=== PATIENT | female | born 1960 | race Caucasian/White ===

== ENCOUNTER → 2017-08-04 | Day surgery (SDC) | payer BC ==
[~2017-08-04] MED LIST: Acetaminophen/HYDROcodone 325-5 MG Tab PO PRN; Bupivacaine 0.5% 30 ML SDV ONE; Diphtheria,Pertussis(Acell),Tetanus Vaccine 0.5 ML SDV IM ONE; Doxycycline 100 MG Cap PO ONE; Iodine/Sodium Iodide 2% Tincture 30 ML Bottle ONE; Ketorolac 15 MG/ML SDV IVPUSH PRN; Lactated Ringers 1,000 ML IV SCH; Lidocaine 0.5% 50 ML SDV ONE; Lidocaine 1% 10 ML MDV INJECT ONE; Lidocaine 1% 20 ML MDV INJECT ONE; Lidocaine 1% 50 ML MDV ONE; Midazolam 1 MG/ML 2 ML SDV ONE; Ondansetron 4 MG/2 ML SDV IVPUSH PRN; Sodium Bicarbonate 8.4% 50 MEQ/50 ML SDV ONE; Sodium Chloride 0.9% 1,000 ML IV SCH; ceFAZolin 1 GM Vial ONE; ceFAZolin 2 GM in Premix Bag 1 BAG IV ONE; cefTRIAXone 1 GM in Sodium Chloride 0.9% 100 ML IV ONE; fentaNYL 250 MCG/5 ML SDV IVPUSH PRN
--- NOTE | 2017-08-04 13:06 | EDM.PDOC ---
ED HPI GENERAL MEDICAL PROBLEM - General Chief Complaint: Laceration Stated Complaint: LEFT RING FINGER LAC Time Seen by Provider: 08/04/17 13:01 Source of Information: Reports: Patient History Limitations: Reports: No Limitations - History of Present Illness INITIAL COMMENTS - FREE TEXT/NARRATIVE: Patient reports that she was sharpening a knife and she slipped when it came out of the shop in her. This resulted in a laceration across the distal dorsal phalanx of her left fourth finger. She recognizes that she's not able to fully extend the fingertip since time of injury. She has no recollection of when her last tetanus toxoid was updated. She denies any other injuries. Onset: Today Onset Date: 08/04/17 Onset Time: 12:40 Duration: Minutes: Location: Reports: Upper Extremity, Left (Left dorsal fourth finger) Quality: Reports: Other (No pain) Severity: Mild Improves with: Reports: None Worsens with: Reports: Movement Context: Reports: Trauma. 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 [No Known Home Meds] 08/04/17 [History] Past Medical History Musculoskeletal History: Reports: Other (See Below) (Patient has had surgical repair of her right distal radius and ulna on 3 occasions. She subsequently has had the hardware removed but had bone grafting presumably distal radius.) Social & Family History - Tobacco Use Smoking Status *Q: Current Every Day Smoker Tobacco Use Within Last Twelve Months: Cigarettes (15-30 cigarettes per day.) - Alcohol Use Alcohol Use History: Yes Days Per Week of Alcohol Use: 0 Alcohol Use in Last Twelve Months: Yes Alcohol Use Comment: Social alcohol use. - Living Situation & Occupation Living situation: Reports: Occupation: Employed ED ROS GENERAL - Review of Systems Review Of Systems: See Below Constitutional: Reports: No Symptoms HEENT: Reports: No Symptoms Respiratory: Reports: No Symptoms Cardiovascular: Reports: No Symptoms Endocrine: Reports: No Symptoms GI/Abdominal: Reports: No Symptoms : Reports: No Symptoms Musculoskeletal: Reports: No Symptoms Skin: Reports: No Symptoms Neurological: Reports: No Symptoms Psychiatric: Reports: No Symptoms Hematologic/Lymphatic: Reports: No Symptoms Immunologic: Reports: No Symptoms ED EXAM, SKIN/RASH Exam: See Below Exam Limited By: No Limitations General Appearance: Alert, WD/WN, No Apparent Distress Throat/Mouth: Normal Inspection, Normal Lips, Normal Teeth, Normal Oropharynx Head: Atraumatic, Normocephalic Neck: Normal Inspection, Supple, Non-Tender, Full Range of Motion. No: Lymphadenopathy (L), Lymphadenopathy (R) Respiratory/Chest: No Respiratory Distress, Lungs Clear, Normal Breath Sounds, No Accessory Muscle Use Cardiovascular: Normal Peripheral Pulses, Regular Rate, Rhythm, No Edema, No Gallop, No Murmur, No Rub Peripheral Pulses: 2+: Posterior Tibial (L), Posterior Tibial (R), Dorsalis Pedis (L), Dorsalis Pedis (R) GI/Abdominal: Normal Bowel Sounds, Soft, Non-Tender, No Organomegaly, No Abnormal Bruit, No Mass, Pelvis Stable, Other Extremities: Other (Examination of the left fourth digit reveals a 1 cm laceration across the dorsal aspect which crosses the midline. It is chest distal to the PIP joint. Patient is unable to fully extend the fingertip. She has good sensation to both the radial and ulnar aspects of the finger. Clinically she has lacerated the door) Neurological: Alert, Oriented, CN II-XII Intact, Normal Cognition, Normal Gait Psychiatric: Normal Affect, Normal Mood Skin: Warm, Dry, Intact, Normal Color, No Rash EKG INTERPRETATION EKG Date: 08/04/17 Time: 14:10 Rhythm: NSR Rate (Beats/Min): 64 [place]: Normal P-Wave: Present QRS: Other (Decreased voltage in limb and precordial leads.) ST-T: Other (Diffuse nonspecific T-wave changes with inversion in leads V2 and V3 and flattening in multiple other leads.) QT: Prolonged (QT interval is moderately prolonged.) EKG Interpretation Comments: Abnormal ECG Course - Vital Signs Last Recorded V/S: Last Vital Signs Temp 36.3 C 08/04/17 14:15 Pulse 76 08/04/17 14:15 Resp 19 08/04/17 14:15 BP 138/109 H 08/04/17 14:15 Pulse Ox 95 08/04/17 14:15 - Orders/Labs/Meds Orders: Active Orders 24 hr Category Date Time Status Communication Order [RC] ASDIRECTED Care 08/04/17 14:49 Active EKG Documentation Completion [RC] STAT Care 08/04/17 13:54 Active Elevate Extremity [RC] CONTINUOUS Care 08/04/17 14:49 Active Head of Bed Elevation [RC] ASDIRECTED Care 08/04/17 14:49 Active Ready for Discharge [RC] PER UNIT ROUTINE Care 08/04/17 14:52 Active Turn, Cough, Deep Breathe [RC] .PRN Care 08/04/17 14:49 Active Vaccines to be Administered [RC] PER UNIT ROUTINE Care 08/04/17 13:04 Active Vital Signs [RC] PER UNIT ROUTINE Care 08/04/17 14:49 Active Chest 1V Frontal [CR] Stat Exams 08/04/17 13:54 Taken Fluoro Up To 1Hr [CR] Routine Exams 08/04/17 14:24 Ordered Acetaminophen/HYDROcodone [[place] 325-5 MG] Med 08/04/17 14:50 Active 1 - 2 tab PO Q4H PRN Ketorolac [Toradol] Med 08/04/17 14:50 Active 15 mg IVPUSH Q6H PRN Lactated Ringers [Ringers, Lactated] 1,000 ml Med 08/04/17 14:15 Active IV ASDIRECTED Ondansetron [Zofran] Med 08/04/17 14:50 Active 4 mg IVPUSH Q4H PRN Ice Therapy [OM.PC] Routine Oth 08/04/17 14:49 Ordered Schedule Procedure [COMM] Stat Oth 08/04/17 15:08 Ordered Medication Orders Hydrocodone Bitart/Acetaminophen ([place] 325-5 Mg) 1 - 2 tab PO Q4H PRN PRN Reason: Pain (severe 7-10) Stop: 08/04/17 23:00 Lactated Ringer's (Ringers, Lactated) 1,000 mls @ 250 mls/hr IV ASDIRECTED ANDREW Ketorolac Tromethamine (Toradol) 15 mg IVPUSH Q6H PRN PRN Reason: Pain (severe 7-10) Stop: 08/04/17 23:00 Ondansetron HCl (Zofran) 4 mg IVPUSH Q4H PRN PRN Reason: Nausea/Vomiting Stop: 08/04/17 23:00 Meds: Medications Generic Name Dose Route Start Last Admin Trade Name Freq PRN Reason Stop Dose Admin Hydrocodone Bitart/Acetaminophen 1 - 2 tab 08/04/17 14:50 [place] 325-5 Mg PO 08/04/17 23:00 Q4H PRN Pain (severe 7-10) Lactated Ringer's 1,000 mls @ 250 mls/hr 08/04/17 14:15 Ringers, Lactated IV ASDIRECTED [facility] Ketorolac Tromethamine 15 mg 08/04/17 14:50 Toradol IVPUSH 08/04/17 23:00 Q6H PRN Pain (severe 7-10) Ondansetron HCl 4 mg 08/04/17 14:50 Zofran IVPUSH 08/04/17 23:00 Q4H PRN Nausea/Vomiting Discontinued Medications Generic Name Dose Route Start Last Admin Trade Name Freq PRN Reason Stop Dose Admin Bupivacaine HCl Confirm 08/04/17 14:02 Marcaine 0.5% Administered 08/04/17 14:03 Dose 30 ml .ROUTE .STK-MED ONE Cefazolin Sodium Confirm 08/04/17 14:16 Ancef Administered 08/04/17 14:17 Dose 2 gm .ROUTE .STK-MED ONE Diphtheria/Tetanus/Acell Pertussis 0.5 ml 08/04/17 13:04 08/04/17 13:14 Adacel IM 08/04/17 13:05 0.5 ml .ONCE ONE Administration Doxycycline Hyclate 200 mg 08/04/17 13:04 08/04/17 13:14 Vibramycin PO 08/04/17 13:05 200 mg ONETIME ONE Administration Cefazolin Sodium/Dextrose 2 gm 50 mls @ 100 mls/hr 08/04/17 13:59 / Premix IV 08/04/17 14:28 ONETIME ONE Sodium Chloride 1,000 mls @ 125 mls/hr 08/04/17 14:00 Normal Saline IV ASDIRECTED [facility] Lidocaine HCl Confirm 08/04/17 14:30 Xylocaine-Mpf 1% Administered 08/04/17 14:31 Dose 10 mls @ as directed .ROUTE .STK-MED ONE Ceftriaxone Sodium 1 gm/ 100 mls @ 200 mls/hr 08/04/17 14:50 Sodium Chloride IV 08/04/17 15:19 ONETIME ONE Iodine Confirm 08/04/17 14:02 Iodine 2% Mild Tincture Administered 08/04/17 14:03 Dose 30 ml .ROUTE .STK-MED ONE Lidocaine HCl 20 ml 08/04/17 13:08 08/04/17 13:15 Xylocaine 1% INJECT 08/04/17 13:09 Not Given ONETIME ONE Lidocaine HCl 10 ml 08/04/17 13:11 08/04/17 13:15 Xylocaine 1% INJECT 08/04/17 13:12 Not Given ONETIME ONE Lidocaine HCl Confirm 08/04/17 13:15 08/04/17 13:14 Xylocaine 1% Administered 08/04/17 13:16 50 ml Dose Administration 50 ml .ROUTE .STK-MED ONE Lidocaine HCl Confirm 08/04/17 15:12 Xylocaine-Mpf 0.5% Administered 08/04/17 15:13 Dose 50 ml .ROUTE .STK-MED ONE Midazolam HCl Confirm 08/04/17 14:17 Versed 1 Mg/Ml Administered 08/04/17 14:18 Dose 2 mg .ROUTE .STK-MED ONE Sodium Bicarbonate Confirm 08/04/17 15:12 Sodium Bicarbonate 8.4% Administered 08/04/17 15:13 Dose 50 meq .ROUTE .STK-MED ONE - Radiology Interpretation Free Text/Narrative:: 57-year-old female attends the ED after suffering a laceration across the dorsal aspect of her distal left fourth finger. On examination there is a 1 cm laceration just distal to the PIP joint dorsally. There is evidence that she is unable to fully extend the distal phalanx indicating tendon laceration. She has normal sensation both radial and ulnar aspects of the fingertip. Plan x-ray of the finger to be done. Tetanus toxoid and diphtheria and pertussis vaccine will be updated. She'll be given doxycycline 200 mg orally to prevent secondary wound infection. I will discuss the problem with the orthopedic surgeon wants x- rays have returned. He may request referral to a hand surgeon to have the tendon definitively repaired. - Re-Assessments/Exams Free Text/Narrative Re-Assessment/Exam: 08/04/17 13:40: X-ray of the left fourth digit reveals no bony injuries. Discussed case with Dr. Bowden nutrition worker orthopedic surgeon and he is willing to take her to the operating room for extensor tendon repair when feasible. Patient last ate at 10:00 this morning. She has subsequently had one small amount of water. Plan wound will be soaked in Betadine saline solution and then dressed with a finger cot dressing to maintain position. There is minimal bleeding from the wound. Tetanus toxoid has been updated. She will be given Ancef 1 g intravenously. Routine labs and preoperative chest x-ray and ECG will be done. We will also have CATTLE TESTER see her with a view to defining a time when she could go to the operating room for definitive tendon repair. Also the rings on her fourth and fifth fingers will have to be removed. 08/04/17 14:48 chest x-ray done portably suggests mild diffuse vascular congestion but it may be over magnified due to portable technique. Cardiac silhouette is otherwise within normal limits. ECG shows sinus rhythm at 64/m with decreased voltage in limb and precordial leads. QT is moderately prolonged. Right atrial hypertrophy and left atrial hypertrophy pattern. Diffuse nonspecific T-wave changes which are nonspecific. Abnormal ECG 08/04/17 15:19 The labs were canceled by Dr. Espinoza. Vision is been taken to the OR for definitive tendon repair. Departure - Departure Time of Disposition: 15:00 Disposition: Admitted As Inpatient 66 Condition: Fair Clinical Impression: Laceration of finger of left hand with tendon involvement Qualifiers: Encounter type: initial encounter Qualified Code(s): S61.412A - Laceration without foreign body of left hand, initial encounter - Discharge Information - My Orders Last 24 Hours: My Active Orders 08/04/17 13:04 Vaccines to be Administered [RC] PER UNIT ROUTINE 08/04/17 13:54 EKG Documentation Completion [RC] STAT Chest 1V Frontal [CR] Stat 08/04/17 14:15 Lactated Ringers [Ringers, Lactated] 1,000 ml IV ASDIRECTED - Assessment/Plan Last 24 Hours: My Active Orders 08/04/17 13:04 Vaccines to be Administered [RC] PER UNIT ROUTINE 08/04/17 13:54 EKG Documentation Completion [RC] STAT Chest 1V Frontal [CR] Stat 08/04/17 14:15 Lactated Ringers [Ringers, Lactated] 1,000 ml IV ASDIRECTED
--- NOTE | 2017-08-04 14:15 | PCM.PREANE ---
Preanesthetic Assessment - Anesthesia/Transfusion/Family Hx Anesthesia History: Prior Anesthesia Without Reaction Family History of Anesthesia Reaction: No Transfusion History: No Prior Transfusion(s) - Review of Systems General: No Symptoms Pulmonary: No Symptoms Cardiovascular: Dyspnea on Exertion Gastrointestinal: No Symptoms Neurological: No Symptoms Other: Reports: Thyroid Problems (hypothyroid ) - Physical Assessment NPO Status Date: 08/04/17 NPO Status Time: 10:30 Pulse: 76 O2 Sat by Pulse Oximetry: 95 Respiratory Rate: 19 Blood Pressure: 138/109 Temperature: 36.3 C Vital Signs: Last Vital Signs Temp 36.3 C 08/04/17 12:58 Pulse 76 08/04/17 12:58 Resp 19 08/04/17 12:58 BP 138/109 H 08/04/17 12:58 Pulse Ox 95 08/04/17 12:58 Height: 1.57 m Weight: 109.769 kg ASA Class: 2 Mental Status: Alert & Oriented x3 Airway Class: Mallampati = 2 Dentition: Reports: [place](s) Thyro-Mental Finger Breadths: 3 Mouth Opening Finger Breadths: 3 ROM/Head Extension: Full Lungs: Clear to Auscultation, Normal Respiratory Effort Cardiovascular: Regular Rate, Regular Rhythm - Allergies Allergies/Adverse Reactions: Allergies Allergy/AdvReac Type Severity Reaction Status Date / Time No Known Allergies Allergy Verified 08/04/17 13:01 - Blood Blood Available: No Product(s) Available: None - Anesthesia Plan Pre-Op Medication Ordered: None - Acknowledgements Anesthesia Type Planned: Regional Block (digit block), MAC Pt an Appropriate Candidate for the Planned Anesthesia: Yes Alternatives and Risks of Anesthesia Discussed w Pt/Guardian: Yes Pt/Guardian Understands and Agrees with Anesthesia Plan: Yes PreAnesthesia Questionnaire Cardiovascular History: Reports: High Cholesterol Musculoskeletal History: Reports: Other (See Below) (Patient has had surgical repair of her right distal radius and ulna on 3 occasions. She subsequently has had the hardware removed but had bone grafting presumably distal radius.) Endocrine/Metabolic History: Reports: Hyperthyroidism - SUBSTANCE USE Smoking Status *Q: Current Every Day Smoker Tobacco Use Within Last Twelve Months: Cigarettes (15-30 cigarettes per day.) Second Hand Smoke Exposure: Yes Days Per Week of Alcohol Use: 0 Number of Drinks Per Day: 0 Total Drinks Per Week: 0 Recreational Drug Use History: No - HOME MEDS Home Medications: Home Meds . [No Known Home Meds] 08/04/17 [History] - CURRENT (IN HOUSE) MEDS Current Meds: Current Medications Cefazolin Sodium/Dextrose 2 gm (/ Premix) 50 mls @ 100 mls/hr IV ONETIME ONE Stop: 08/04/17 14:28 Lactated Ringer's (Ringers, Lactated) 1,000 mls @ 250 mls/hr IV ASDIRECTED ANDREW Discontinued Medications Diphtheria/Tetanus/Acell Pertussis (Adacel) 0.5 ml IM .ONCE ONE Stop: 08/04/17 13:05 Last Admin: 08/04/17 13:14 Dose: 0.5 ml Doxycycline Hyclate (Vibramycin) 200 mg PO ONETIME ONE Stop: 08/04/17 13:05 Last Admin: 08/04/17 13:14 Dose: 200 mg Sodium Chloride (Normal Saline) 1,000 mls @ 125 mls/hr IV ASDIRECTED ANDREW Lidocaine HCl (Xylocaine 1%) 20 ml INJECT ONETIME ONE Stop: 08/04/17 13:09 Last Admin: 08/04/17 13:15 Dose: Not Given Lidocaine HCl (Xylocaine 1%) 10 ml INJECT ONETIME ONE Stop: 08/04/17 13:12 Last Admin: 08/04/17 13:15 Dose: Not Given Lidocaine HCl (Xylocaine 1%) Confirm Administered Dose 50 ml .ROUTE .STK-MED ONE Stop: 08/04/17 13:16 Last Admin: 08/04/17 13:14 Dose: 50 ml
--- NOTE | 2017-08-04 14:39 | CR ---
Left fourth finger: Three views centered to the left fourth finger were obtained. Portions of the fourth and fifth finger not seen due to patient's rings. Minimal degenerative change is noted within the DIP joints of the visualized third through fifth fingers. No fracture or other bony abnormality is seen. Impression: 1. Mild degenerative change. No acute bony abnormality is seen. Diagnostic code #2
--- NOTE | 2017-08-04 15:59 | PCM.POSTAN ---
POST ANESTHESIA ASSESSMENT - MENTAL STATUS Mental Status: Alert, Oriented - VITAL SIGNS Pulse Rate: 69 SaO2: 93 Resp Rate: 16 Blood Pressure: 151/102 Temperature: 36.9 C - RESPIRATORY Respiratory Status: Respiratory Rate WNL, Airway Patent, O2 Saturation Stable, Supplemental Oxygen - CARDIOVASCULAR CV Status: Pulse Rate WNL, Blood Pressure Stable - GASTROINTESTINAL GI Status: No Symptoms - PAIN Pain Score: 0 - POST OP HYDRATION Hydration Status: Adequate & Stable - OBSERVATIONS Free Text/Narrative:: no anesthesia complications noted
--- NOTE | 2017-08-04 20:29 | HP ---
DATE OF ADMISSION: 08/04/2017 HISTORY OF PRESENT ILLNESS: This is the first orthopedic outpatient admission for surgery for this 57-year- old female who is being admitted through the emergency room with acute laceration of the extensor tendon of the left ring finger. The patient suffered this injury on 08/04/2017 around 12:30 p.m., was seen and evaluated on emergency status and the laceration was a clean knife type laceration, and after evaluation, the patient is being scheduled for repair and fixation of the extensor tendon laceration left ring finger. Procedure was outlined to the patient. She understands the procedure and has consented to it. ALLERGIES: No known drug allergies. PAST MEDICAL HISTORY: The patient notes that she has a history of hypothyroidism and also increased cholesterol. She states she is on no medications. Currently, has no family physician here in the area. CURRENT MEDICATIONS: The patient currently taking no medications. PAST SURGICAL HISTORY: Surgical history is positive. She has had previous . Also, she had a previous fracture of her right forearm. She notes no anesthesia complications or problem. She denies any bleeding history or blood clot history. SOCIAL HISTORY: The patient stated that she just is a smoker. Alcohol, she has occasional alcohol use and this is only on a rare social type situation. PHYSICAL EXAMINATION: GENERAL: Today, on evaluation reveals a well-developed, well-nourished 57-year- old female in moderate distress. HEAD, EYES, EARS, NOSE, AND THROAT: Normocephalic. NECK: Supple. CHEST: Clear. COR: Regular rate. ABDOMEN: Soft. : Intact. EXTREMITIES: Examination of left upper extremity left ring finger reveals a laceration prison between the DIP joint and PIP joint with loss of extension of the finger distally with a mallet deformity. The laceration was a clean laceration knife type. ASSESSMENT: Extensor tendon laceration, left ring finger. PLAN: Plan will be for the patient to undergo a repair of the extensor tendon laceration and stabilization with K-wire left ring finger. Procedure is outlined to the patient. She understands and has consented to surgery. ARABELLA /[id number]
--- NOTE | 2017-08-05 06:51 | CR ---
Chest: Portable view of the chest was obtained. Comparison: No prior study. Heart size within normal limits for portable technique. Tortuous thoracic aorta is seen. Lungs are clear. Bony structures are grossly intact. Impression: 1. Nothing acute is appreciated on portable chest x-ray. Diagnostic code #2
--- NOTE | 2017-08-05 07:12 | CR ---
Right fourth finger: Two fluoroscopic spot views were obtained of the right fourth finger utilizing C-arm device in the operating room. Study shows surgery within the DIP joint of the fourth finger. Fluoroscopy time given as 28.2 seconds. Impression: 1. Finding as noted above. Diagnostic code #2
--- NOTE | 2017-08-05 07:34 | CONS ---
CONSULTING PHYSICIAN: Nito Dill MD DATE OF CONSULTATION: 08/04/2017 HISTORY OF PRESENT ILLNESS: Orthopedic consultation called for by emergency room physician for evaluation of left hand injury. The patient was working at home with a knife when she suffered a laceration across the top and distal portion of her left ring finger causing laceration to the extensor tendon. After evaluation through the emergency room doctor, orthopedic consultation called for for evaluation of possible surgery. The patient notes that she notes no other injury other than the laceration, has a moderate pain in the area there, and notes that she was unable to extend her finger. Date of injury was 08/04/2017 around 1230 hours. PHYSICAL EXAMINATION: The patient's physical examination at the emergency room revealed the patient to be in moderate discomfort involving her left hand. Evaluation of left hand found the laceration across the mid point area between the DIP joint and PIP joint and obvious mallet deformity of the finger and inability to extend the finger. The laceration was clean, and after evaluation and the loss of the extensor function, discussed with the patient to undergo a repair of the extensor tendon laceration. IMPRESSION: The overall impression is acute laceration, extensor tendon injury, laceration of the left ring finger. PLAN: The patient to be scheduled for outpatient surgery to undergo repair with a K- wire pin fixation to hold the repair. Procedure has been outlined to her. She understands and has consented to surgery. ARABELLA /[id number]
--- NOTE | 2017-08-05 07:38 | OR ---
DATE OF OPERATION: 08/04/2017 SURGEON: Nito Dill MD PREOPERATIVE DIAGNOSIS: Acute laceration extensor tendon, left ring finger. POSTOPERATIVE DIAGNOSIS: Acute laceration extensor tendon, left ring finger. ANESTHESIA: [place] block with a digital block. OPERATION PERFORMED: Repair of the extensor tendon, left ring finger with K- wire stabilization. DESCRIPTION OF PROCEDURE: After the patient was taken to the operating room in a supine position, she was placed under a light sedation with a [place] block anesthesia to the left upper extremity and a digital block. Prepping and draping was carried out by standard technique, and after prepping and draping, the area of laceration was surge lavaged with solution to thoroughly clean the laceration site. Once that was completed, the operation then proceeded with placement of a K-wire through the distal phalanx across the DIP joint and into the middle phalanx to stabilize the repair of the extensor tendon. Once the K-wire was in place, the operation proceeded with evaluation of the laceration. It was extended on opposite sides to gain access to the tendon itself and once that was performed, the tendon was then lightly debrided and exposed for suture repair. 4-0 Vicryl sutures were used in a [id number] fashion to repair the tendon. Once that was completed, the operation then proceeded with final irrigation of the wound area. The skin was then closed with 5-0 Prolene. The patient was placed in standard dressings. She tolerated the procedure well and left the operating room in stable condition to room for recovery. ESTIMATED BLOOD LOSS: MMODAL /[id number]
== END | disposition home or self-care (01) ==
LOC: JD.ED 12:51 → JD.SDS 14:01
PROVIDERS: ATTEND Specialist
DX: S66.325A Laceration of extensor muscle, fascia and tendon of left ring finger at wrist and hand level, initial encounter (principal); S61.215A Laceration without foreign body of left ring finger without damage to nail, initial encounter; F17.210 Nicotine dependence, cigarettes, uncomplicated; W26.0XXA Contact with knife, initial encounter; Z98.890 Other specified postprocedural states
CPT/HCPCS: 26418; 71010; 73140; 76000; 90715; 93005; A9270; J0690; J0696; J2250; J7030; 01810; 90471; 99284-25; 99285-25; C1769

== ENCOUNTER 2017-12-18 06:37 | Day surgery (SDC) | payer BC ==
[~2017-12-18 06:37] MED LIST changes: -Acetaminophen/HYDROcodone 325-5 MG Tab PO PRN; -Bupivacaine 0.5% 30 ML SDV ONE; -Diphtheria,Pertussis(Acell),Tetanus Vaccine 0.5 ML SDV IM ONE; -Doxycycline 100 MG Cap PO ONE; -Iodine/Sodium Iodide 2% Tincture 30 ML Bottle ONE; -Ketorolac 15 MG/ML SDV IVPUSH PRN; -Lidocaine 0.5% 50 ML SDV ONE; -Lidocaine 1% 10 ML MDV INJECT ONE; -Lidocaine 1% 20 ML MDV INJECT ONE; -Lidocaine 1% 50 ML MDV ONE; +Lidocaine 1%/Sod Bicarbonate in NS 8.4% 1 ML Syringe IDERM PRN; -Midazolam 1 MG/ML 2 ML SDV ONE; -Ondansetron 4 MG/2 ML SDV IVPUSH PRN; -Sodium Bicarbonate 8.4% 50 MEQ/50 ML SDV ONE; -Sodium Chloride 0.9% 1,000 ML IV SCH; +Sodium Chloride 0.9% 10 ML Syringe FLUSH PRN; -ceFAZolin 1 GM Vial ONE; -ceFAZolin 2 GM in Premix Bag 1 BAG IV ONE; -cefTRIAXone 1 GM in Sodium Chloride 0.9% 100 ML IV ONE; -fentaNYL 250 MCG/5 ML SDV IVPUSH PRN
[2017-12-18] MEDS ORDERED: Propofol 200 MG/20 ML SDV ONE ×2 (07:02→07:49)
[2017-12-18] MEDS ORDERED: Lidocaine 1% 6 ML ONE (07:03)
[2017-12-18] MEDS ORDERED: fentaNYL 100 MCG/2 ML SDV ONE (07:03)
--- NOTE | 2017-12-18 07:14 | PCM.PREANE ---
Preanesthetic Assessment - Anesthesia/Transfusion/Family Hx Anesthesia History: Prior Anesthesia Without Reaction Family History of Anesthesia Reaction: No Transfusion History: No Prior Transfusion(s) - Review of Systems General: No Symptoms Pulmonary: No Symptoms (She was told she may have sleep apnea. ) Cardiovascular: No Symptoms Gastrointestinal: No Symptoms Neurological: No Symptoms Other: Reports: Thyroid Problems - Physical Assessment NPO Status Date: 12/17/17 NPO Status Time: 21:30 O2 Sat by Pulse Oximetry: 93 Respiratory Rate: 16 Vital Signs: Last Vital Signs Temp 36.6 C 12/18/17 06:40 Pulse 84 12/18/17 06:40 Resp 16 12/18/17 06:40 BP 99/69 12/18/17 06:40 Pulse Ox 93 L 12/18/17 06:40 Height: 1.6 m Weight: 106.141 kg ASA Class: 2 Mental Status: Alert & Oriented x3 Airway Class: Mallampati = 2 Dentition: Reports: Normal Dentition Thyro-Mental Finger Breadths: 3 Mouth Opening Finger Breadths: 3 ROM/Head Extension: Full Lungs: Clear to Auscultation, Normal Respiratory Effort Cardiovascular: Regular Rate, Regular Rhythm - Allergies Allergies/Adverse Reactions: Allergies Allergy/AdvReac Type Severity Reaction Status Date / Time No Known Allergies Allergy Verified 12/17/17 14:36 - Acknowledgements Anesthesia Type Planned: MAC Pt an Appropriate Candidate for the Planned Anesthesia: Yes Alternatives and Risks of Anesthesia Discussed w Pt/Guardian: Yes Pt/Guardian Understands and Agrees with Anesthesia Plan: Yes PreAnesthesia Questionnaire HEENT History: Reports: Impaired Vision, Other (See Below) Other HEENT History: wears glasses Cardiovascular History: Reports: High Cholesterol Respiratory History: Reports: Sleep Apnea, SOB Gastrointestinal History: Reports: None Genitourinary History: Reports: None PUBLIC HEALTH POLICY ANALYST History: Reports: None Musculoskeletal History: Reports: Other (See Below) Neurological History: Reports: None Psychiatric History: Reports: None Endocrine/Metabolic History: Reports: Hyperthyroidism, Hypothyroidism Hematologic History: Reports: None Immunologic History: Reports: None Oncologic (Cancer) History: Reports: None Dermatologic History: Reports: None - Past Surgical History Head Surgeries/Procedures: Reports: None Respiratory Surgical History: Reports: None GI Surgical History: Reports: None Female Surgical History: Reports: Section Male Surgical History: Reports: None Endocrine Surgical History: Reports: None Neurological Surgical History: Reports: None Musculoskeletal Surgical History: Reports: Other (See Below) Other Musculoskeletal Surgeries/Procedures:: hand fracture with surgical repair Oncologic Surgical History: Reports: None - SUBSTANCE USE Smoking Status *Q: Current Every Day Smoker Tobacco Use Within Last Twelve Months: Cigarettes Second Hand Smoke Exposure: Yes Days Per Week of Alcohol Use: 0 Number of Drinks Per Day: 0 Total Drinks Per Week: 0 Recreational Drug Use History: No - HOME MEDS Home Medications: Home Meds Levothyroxine Sodium 88 mcg PO DAILY 12/17/17 [History] Lisinopril 20 mg PO DAILY 12/17/17 [History] Ubidecarenone [Coq-10] 100 mg PO DAILY 12/17/17 [History] atorvaSTATin Calcium [Atorvastatin Calcium] 40 mg PO DAILY 12/17/17 [History] - CURRENT (IN HOUSE) MEDS Current Meds: Current Medications Lactated Ringer's (Ringers, Lactated) 1,000 mls @ 125 mls/hr IV ASDIRECTED ANDREW Stop: 12/18/17 23:00 Last Admin: 12/18/17 06:55 Dose: 125 mls/hr Lidocaine/Sodium Bicarbonate (Buffered Lidocaine 1% In Ns 8.4%) 0.25 ml IDERM ONETIME PRN PRN Reason: Prior to IV Start Stop: 12/18/17 18:00 Last Admin: 12/18/17 06:55 Dose: 0.25 ml Sodium Chloride (Saline Flush) 10 ml FLUSH ASDIRECTED PRN PRN Reason: Keep Vein Open Stop: 12/18/17 18:00 Discontinued Medications Fentanyl (Sublimaze) Confirm Administered Dose 100 mcg .ROUTE .STK-MED ONE Stop: 12/18/17 07:04 Lidocaine HCl (Xylocaine-Mpf 1%) Confirm Administered Dose 6 mls @ as directed .ROUTE .STK-MED ONE Stop: 12/18/17 07:04 Propofol (Diprivan 20 Ml) Confirm Administered Dose 400 mg .ROUTE .STK-MED ONE Stop: 12/18/17 07:03
--- NOTE | 2017-12-18 07:24 | PCM.HP ---
H&P History of Present Illness - General Date of Service: 12/18/17 Source of Information: Patient History Limitations: Reports: No Limitations - History of Present Illness Initial Comments - Free Text/Narative: 57 year old female here today for family history of colon cancer in father requiring screening colonoscopy. NO changes in bowel habits, no hematochezia or melena. She has never had a colonoscopy. - Related Data Allergies/Adverse Reactions: Allergies Allergy/AdvReac Type Severity Reaction Status Date / Time No Known Allergies Allergy Verified 12/17/17 14:36 Home Medications: Home Meds Levothyroxine Sodium 88 mcg PO DAILY 12/17/17 [History] Lisinopril 20 mg PO DAILY 12/17/17 [History] Ubidecarenone [Coq-10] 100 mg PO DAILY 12/17/17 [History] atorvaSTATin Calcium [Atorvastatin Calcium] 40 mg PO DAILY 12/17/17 [History] Past Medical History HEENT History: Reports: Impaired Vision, Other (See Below) Other HEENT History: wears glasses Cardiovascular History: Reports: High Cholesterol Respiratory History: Reports: Sleep Apnea, SOB Gastrointestinal History: Reports: None Genitourinary History: Reports: None ORIENTAL MEDICINE PRACTITIONER History: Reports: None Musculoskeletal History: Reports: Other (See Below) Neurological History: Reports: None Psychiatric History: Reports: None Endocrine/Metabolic History: Reports: Hyperthyroidism, Hypothyroidism Hematologic History: Reports: None Immunologic History: Reports: None Oncologic (Cancer) History: Reports: None Dermatologic History: Reports: None - Past Surgical History Head Surgeries/Procedures: Reports: None Respiratory Surgical History: Reports: None GI Surgical History: Reports: None Female Surgical History: Reports: Section Male Surgical History: Reports: None Endocrine Surgical History: Reports: None Neurological Surgical History: Reports: None Musculoskeletal Surgical History: Reports: Other (See Below) Other Musculoskeletal Surgeries/Procedures:: hand fracture with surgical repair Oncologic Surgical History: Reports: None Social & Family History - Family History Family Medical History: Noncontributory - Tobacco Use Smoking Status *Q: Current Every Day Smoker Years of Tobacco use: 40 Packs/Tins Daily: 1 Second Hand Smoke Exposure: Yes - Caffeine Use Caffeine Use: Reports: Coffee, Soda - Alcohol Use Days Per Week of Alcohol Use: 0 Number of Drinks Per Day: 0 Total Drinks Per Week: 0 - Recreational Drug Use Recreational Drug Use: No - Living Situation & Occupation Living situation: Reports: Occupation: Employed H&P Review of Systems - Review of Systems: Review Of Systems: See Below General: Reports: No Symptoms HEENT: Reports: No Symptoms Pulmonary: Reports: No Symptoms Cardiovascular: Reports: No Symptoms Gastrointestinal: Reports: No Symptoms Genitourinary: Reports: No Symptoms Musculoskeletal: Reports: No Symptoms Exam - Exam Exam: See Below - Vital Signs Vital Signs: Last Vital Signs Temp 36.6 C 12/18/17 06:40 Pulse 84 12/18/17 06:40 Resp 16 12/18/17 07:17 BP 99/69 12/18/17 06:40 Pulse Ox 93 L 12/18/17 07:17 Weight: 106.141 kg - Exam General: Alert, Oriented Neck: Supple Lungs: Clear to Auscultation, Normal Respiratory Effort Cardiovascular: Regular Rate, Regular Rhythm GI/Abdominal Exam: Normal Bowel Sounds, Soft, Non-Tender - Problem List (1) Family history of colon cancer in father SNOMED Code(s): 354827516, [id number] ICD Code: Z80.0 - FAMILY HISTORY OF MALIGNANT NEOPLASM OF DIGESTIVE ORGANS Status: Acute Current Visit: Yes Problem List Initiated/Reviewed/Updated: Yes Orders Last 24hrs: Active Orders 24 hr Category Date Time Status Peripheral IV Care [RC] . DIRECTED Care 12/18/17 00:01 Active Verify Patient Consent Obtain [RC] ASDIRECTED Care 12/18/17 00:01 Active Lactated Ringers [Ringers, Lactated] 1,000 ml Med 12/18/17 00:01 Active IV ASDIRECTED Lidocaine 1%/Sod Bicarbonate [Buffered Lidocaine 1% in Med 12/18/17 00:01 Active NS 8.4%] 0.25 ml IDERM ONETIME PRN Sodium Chloride 0.9% [Saline Flush] Med 12/18/17 00:01 Active 10 ml FLUSH ASDIRECTED PRN Medication Administration Instruction [OM.PC] Routine Oth 12/18/17 00:01 Ordered Peripheral IV Insertion Adult [OM.PC] Routine Oth 12/18/17 00:01 Ordered Medication Orders Lactated Ringer's (Ringers, Lactated) 1,000 mls @ 125 mls/hr IV ASDIRECTED ANDREW Stop: 12/18/17 23:00 Last Admin: 12/18/17 06:55 Dose: 125 mls/hr Lidocaine/Sodium Bicarbonate (Buffered Lidocaine 1% In Ns 8.4%) 0.25 ml IDERM ONETIME PRN PRN Reason: Prior to IV Start Stop: 12/18/17 18:00 Last Admin: 12/18/17 06:55 Dose: 0.25 ml Sodium Chloride (Saline Flush) 10 ml FLUSH ASDIRECTED PRN PRN Reason: Keep Vein Open Stop: 12/18/17 18:00 Assessment/Plan Comment:: Proceed with high risk screening colonoscopy for family history of colon cancer. Benefits/risks discussed.
--- NOTE | 2017-12-18 08:02 | PCM.OPNOTE ---
- General Post-Op/Procedure Note Date of Surgery/Procedure: 12/18/17 Operative Procedure(s): Colonoscopy with cold forceps biopsy Findings: 2 mm descending polyp, two 2 mm rectal polyps, sigmoid diverticulosis Pre Op Diagnosis: Family history of colon cancer in father Post-Op Diagnosis: Colon polyps, Diverticulosis Primary Surgeon: Gee Combs EBL in mLs: 5 Complications: None Condition: Good Free Text/Narrative:: After the patient gave verbal and written consent she was placed on blood pressure and pulse ox monitoring. She was given IV sedation which she tolerated well. THe olympus colonoscope was inserted per rectum and advanced the to the cecum without difficulty. The ileocecal valve and appendiceal orfice were imaged documenting cecal intubation. THe scope was slowly withdrawn. THe prep was excellent. The views were excellent. 3 polyps were noted in the colon. A 2 mm descending polyp, and two 2 mm rectal polyps were removed with cold forceps biopsy. The polyps were completely removed and retrieved. There was good hemoastasis. Sigmoid diverticulosis was noted and imaged. THe scope was then retroflexed in the rectum and removed.
--- NOTE | 2017-12-18 08:09 | PCM48HPAN ---
Post Anesthesia Note - EVALUATION WITHIN 48HRS OF ANESTHETIC Vital Signs in Normal Range: Yes Patient Participated in Evaluation: Yes Respiratory Function Stable: Yes Airway Patent: Yes Cardiovascular Function Stable: Yes Hydration Status Stable: Yes Pain Control Satisfactory: Yes Nausea and Vomiting Control Satisfactory: Yes Mental Status Recovered: Yes Pulse Rate: 73 SaO2: 94 Resp Rate: 16 Temperature: 36.2 C Blood Pressure: 90/58 Pulse Rate: 73
== END 2017-12-18 09:10 | disposition home or self-care (01) ==
LOC: JD.SDS 06:37
PROVIDERS: ATTEND Family Medicine
DX: Z12.11 Encounter for screening for malignant neoplasm of colon (principal); D12.4 Benign neoplasm of descending colon; K62.1 Rectal polyp; K57.30 Diverticulosis of large intestine without perforation or abscess without bleeding; E78.00 Pure hypercholesterolemia, unspecified; E03.9 Hypothyroidism, unspecified; G47.30 Sleep apnea, unspecified; F17.210 Nicotine dependence, cigarettes, uncomplicated; Z79.899 Other long term (current) drug therapy; Z80.0 Family history of malignant neoplasm of digestive organs; Z98.890 Other specified postprocedural states
CPT/HCPCS: 45380; J3010; J7120; 00811; J2704

== ENCOUNTER 2025-03-08 08:02 | Day surgery (SDC) | payer BC ==
[~2025-03-08 08:02] MED LIST changes: -Lactated Ringers 1,000 ML IV SCH; -Lidocaine 1%/Sod Bicarbonate in NS 8.4% 1 ML Syringe IDERM PRN; +Sodium Chloride 0.9% 10 ML Syringe FLUSH SCH
[2025-03-08] MEDS: Lactated Ringers 1,000 ML IV SCH (08:20)
[2025-03-08] MEDS ORDERED: Propofol 200 MG/20 ML SDV ONE (08:25)
== END 2025-03-08 10:55 | disposition home or self-care (01) ==
LOC: JD.SDS 08:02
PROVIDERS: ATTEND Surgery
DX: Z12.11 Encounter for screening for malignant neoplasm of colon (principal); K63.5 Polyp of colon; D12.4 Benign neoplasm of descending colon; K57.30 Diverticulosis of large intestine without perforation or abscess without bleeding; K64.8 Other hemorrhoids; I10 Essential (primary) hypertension; E03.9 Hypothyroidism, unspecified; E78.5 Hyperlipidemia, unspecified; F17.210 Nicotine dependence, cigarettes, uncomplicated; Z88.8 Allergy status to other drugs, medicaments and biological substances; Z86.0101 Personal history of adenomatous and serrated colon polyps; Z79.890 Hormone replacement therapy; Z79.899 Other long term (current) drug therapy
CPT/HCPCS: 45380; J2704; J7120; 00811